=== PATIENT | female | born 1980 | race Caucasian/White ===

== ENCOUNTER 2017-12-26 19:28 | Emergency (ER) | payer SELFPAY ==
[2017-12-26 19:40] VITALS: BMI 27.4
[2017-12-26] MEDS ORDERED: TORADOL 30 MG VIAL IVP ONE (20:11)
--- NOTE | 2017-12-26 20:11 | DR.GENAD ---
HPI - PCP Primary Care Physician: NFD - Complaint/Symptoms Chief Complaint Doctors Comments: Patient presents with complaint of influenza like symptoms since the previous. She did not get influenza shot Chief Complaint:: FEVER SO BAD SHE CAN'T OPEN HER EYES. O/S LAST 3-4 DAYS, BODY ACHES. Self Treatment fo Chief Complaint: TYLENOL. WHISKEY-OLD HOME REMEDY. MUCINEX - Source History Provided: Patient - Mode of Arrival Mode of Arrival: Ambulatory - Timing Onset of Chief Complaint: 12/23/17 PMH - PMH Past Medical History: Yes Past Medical History: Hypertension Past Medical History Comment: HYPOGLYCEMIA Past Surgical History: Yes Past Surgical History Comment: TUBALIGATION - Family History History of Family Medical Conditions: No - Social History Type of Tobacco Use: Cigarettes Alcohol Use: None Do you use any recreational Drugs:: No Lives With: Significant Other Lives Where: Home - infectious screening Have you traveled outside the country in the last 6 months?: No Isolation: Standard ROS - Review of Systems Constitutional: Chills Eyes: No Symptoms Reported ENTM: No Symptoms Reported Respiratoy: Non-Productive Cough Cardiovascular: No Symptoms Reported Gastrointestinal/Abdominal: No Symptoms Reported Genitourinary: No Symptoms Reported Neurological: No Symptoms Reported Musculoskeletal: No Symptoms Reported Integumentary: No Symptoms Reported Hematologic/Lymphatic: No Symptoms Reported Endocrine: No Symptoms Reported Psychiatric: No Symptoms Reported All Other Systems: Reviewed and Negative PE - Vital Signs Vitals: Temperature 101.6 F Pulse Rate 89 Respiratory Rate 22 Blood Pressure 111/74 O2 Sat by Pulse Oximetry 99 - General Limitations: No Limitations General Appearance: Alert, In No Apparent Distress - Head Head Exam: Normal Inspection, Atraumatic - Eyes Eye exam: Normal Appearance, PERRL, EOMI - ENT ENT Exam: Normal Exam External Ear Exam: Normal External Inspection TM/Canal Exam: Bilateral Normal Nose Exam: Normal Nose Exam Mouth Exam: Normal Inspection Throat Exam: Normal Inspection, Tonsillar Erythema - Neck Neck Exam: Normal Inspection, Full ROM - Chest Chest Inspection: Normal Inspection, Symmetric Chest Wall Rise - Respiratory Respiratory Exam: Normal Lung Sounds Bilat Respiratory Exam: Bilateral Clear to Auscultation - Cardiovascular Cardiovascular Exam: Regular Rate - Abdominal Exam Abdominal Exam: Normal Inspection, Normal Bowel Sounds Abdominal Tenderness: negative: RUQ, RLQ, LUQ, LLQ, Epigastrium, Suprapubic, Diffuse, Mild, Moderate, Severe, Other - Extremities Extremities Exam: Normal Inspection - Back Back Exam: Normal Inspection - Neurologic Neurological Exam: Alert, Oriented X3, CN II-XII Intact - Psychiatric Psychiatric Exam: Normal Affect, Normal Mood - Skin Skin Exam: Warm, Dry, Intact Course - Reevaluation 1st: Improved ROR - Labs Reviewed Laboratory Results Reviewed?: Yes (influenza A) Result Diagrams: 12/26/17 20:20 12/26/17 20:20 Laboratory: WBC 3.6 X10^3/uL (3.6-10.0) 12/26/17 20:20 RBC 4.32 X10^6/uL (3.5-5.4) 12/26/17 20:20 Hgb 11.9 g/dL (12.0-16.0) L 12/26/17 20:20 Hct 35.4 % (36.0-47.0) L 12/26/17 20:20 MCV 81.9 fL (80.0-100.0) 12/26/17 20:20 MCH 27.6 pg (27.0-34.0) 12/26/17 20:20 MCHC 33.7 g/dL (33.0-35.0) 12/26/17 20:20 RDW 16.5 % (11.6-16.5) 12/26/17 20:20 Plt Count 151 X10^3/uL (150.0-450.0) 12/26/17 20:20 Plt Count Comment Adequate (ADEQUATE) 12/26/17 20:20 MPV 8.7 fL (7.4-11.0) 12/26/17 20:20 Neut % 60.4 % (42.0-75.0) 12/26/17 20:20 Lymph % 23.5 % (21.0-51.0) 12/26/17 20:20 [place] % 15.8 % (0.0-13.0) H 12/26/17 20:20 Eos % 0.0 % (0.9-2.9) L 12/26/17 20:20 Baso % 0.3 % (0.2-1.0) 12/26/17 20:20 Neut # 2.2 x10^3/uL (2.2-4.8) 12/26/17 20:20 Lymph # 0.9 X10^3/uL (1.3-2.9) L 12/26/17 20:20 [place] # 0.6 x10^3/uL (0.3-0.8) 12/26/17 20:20 Eos # 0.0 x10^3/uL (0.0-0.2) 12/26/17 20:20 Baso # 0.0 X10^3/uL (0.0-0.1) 12/26/17 20:20 Absolute Nucleated RBC 0.1 /100WBC 12/26/17 20:20 Total Counted 100 12/26/17 20:20 Neutrophils % (Manual) 62 % (39-76) 12/26/17 20:20 Band Neutrophils % 4 % (0-10) 12/26/17 20:20 Lymphocytes % (Manual) 22 % (13-43) 12/26/17 20:20 Monocytes % (Manual) 12 % (4-9) H 12/26/17 20:20 Plt Morphology Comment Normal (NORMAL) 12/26/17 20:20 RBC Morphology Abnormal (NORMAL) A 12/26/17 20:20 Hypochromasia Slight A 12/26/17 20:20 Sodium 137 mmol/L (136-145) 12/26/17 20:20 Corrected Sodium TNP 12/26/17 20:20 Potassium 3.5 mmol/L (3.5-5.1) 12/26/17 20:20 Chloride 102 mmol/L (98-107) 12/26/17 20:20 Carbon Dioxide 26.8 mmol/L (21-32) 12/26/17 20:20 BUN 9 mg/dL (7-18) 12/26/17 20:20 Creatinine 1.06 mg/dL (0.55-1.02) H 12/26/17 20:20 Est GFR (MDRD) Af Amer > 60 (>60) 12/26/17 20:20 Est GFR (MDRD) Non-Af > 60 (>60) 12/26/17 20:20 Glucose 99 mg/dL (65-99) 12/26/17 20:20 Calcium 8.0 mg/dL (8.5-10.1) L 12/26/17 20:20 Influenza Type A (PCR) Positive (NEGATIVE) A 12/26/17 20:04 Influenza Type B (PCR) Negative (NEGATIVE) 12/26/17 20:04 S. pyogenes (TEM-PCR) Not detected (NOT DETECT) 12/26/17 20:04 - Diagnosis Discharge Problem: Influenza A - Discharge Plan Condition: Stable - Follow ups/Referrals Follow ups/Referrals: NFD,None [Primary Care Provider] - 3 days - Instructions
[2017-12-26] MEDS ORDERED: NS 1000 ML 1,000 ML IV ONE (20:12)
[2017-12-26] MEDS ORDERED: NS 1000 ML 1,000 ML ONE (20:15)
[2017-12-26] MEDS ORDERED: TORADOL 30 MG VIAL ONE (20:15)
[2017-12-26 20:41] LABS: BLOOD UREA NITROGEN 9 mg/dL (7-18); CARBON DIOXIDE 26.8 mmol/L (21-32); CHLORIDE 102 mmol/L (98-107); CREATININE 1.06 mg/dL (0.55-1.02); SODIUM 137 mmol/L (136-145); eGFR BLACK RACES > 60 (>60); eGFR NON BLACK RACES > 60 (>60)
[2017-12-26 20:43] LABS: BASOPHILS % (AUTO) 0.3 % (0.2-1.0); HEMATOCRIT 35.4 % (36.0-47.0); HEMOGLOBIN 11.9 g/dL (12.0-16.0); LYMPHOCYTES # (AUTO) 0.9 X10^3/uL (1.3-2.9); LYMPHOCYTES % (AUTO) 23.5 % (21.0-51.0); MEAN CORPUSCULAR HEMOGLOBIN 27.6 pg (27.0-34.0); MEAN CORPUSCULAR HGB CONC 33.7 g/dL (33.0-35.0); MEAN CORPUSCULAR VOLUME 81.9 fL (80.0-100.0); MEAN PLATELET VOLUME 8.7 fL (7.4-11.0); MONOCYTES # (AUTO) 0.6 x10^3/uL (0.3-0.8); MONOCYTES % (AUTO) 15.8 % (0.0-13.0); NEUTROPHILS # (AUTO) 2.2 x10^3/uL (2.2-4.8); NEUTROPHILS % (AUTO) 60.4 % (42.0-75.0); PLATELET COUNT 151 X10^3/uL (150.0-450.0); RED BLOOD COUNT 4.32 X10^6/uL (3.5-5.4); RED CELL DISTRIBUTION WIDTH 16.5 % (11.6-16.5); WHITE BLOOD COUNT 3.6 X10^3/uL (3.6-10.0)
[2017-12-26 20:59] LABS: BAND NEUTROPHILS % 4 % (0-10); HYPOCHROMASIA SLIGHT; PLATELET MORPHOLOGY COMMENT NORMAL (NORMAL)
[2017-12-26 21:18] VITALS: BP 104/57
== END 2017-12-26 21:19 | disposition home or self-care (01) ==
LOC: ER 19:28
DX: J10.1 Influenza due to other identified influenza virus with other respiratory manifestations (principal)
CPT/HCPCS: 36415; 80048; 85025; 87502; 87651; 96365; 96374; 99282; 99283; A4222; J1885